=== PATIENT | female | born 1965 | race Caucasian/White ===

== ENCOUNTER 2017-04-08 06:47 | Emergency (ER) | payer SELFPAY ==
[~2017-04-08] VITALS: Ht 165.1 cm; Wt 107.8 kg
[2017-04-08 06:51] VITALS: BP 124/76; PULSE 81; RESP 16; TEMP 97.6; O2SAT 94
[2017-04-08] MEDS ORDERED: VENTAER INH (07:20)
[2017-04-08] MEDS ORDERED: TRAM50TA PO (07:20)
--- NOTE | 2017-04-08 07:24 | PD ---
HPI Chief Complaint: Cold / Flu Symptoms Time Seen by Provider: 07:09 Travel History International Travel<30 days: No Contact w/Intl Traveler<30days: No Traveled to known affect area: No History of Present Illness HPI This patient complains of runny nose and congestion and cough and swollen glands. Duration 5 days. Severity is moderate. No alleviating factors PFSH Past Medical History Medical History: Denies Significant Hx Hx Anticoagulant Therapy: No Diabetes: No Diminished Hearing: No Tetanus Vaccination: > 5 Years Influenza Vaccination: No ?: Not Tubal Ligation: Yes Past Surgical History Appendectomy: Yes Social History Alcohol Use: Yes (rare) Tobacco Use: Yes (1/2 PPD) Substance Use: No Allergies-Medications (Allergen,Severity, Reaction): Coded Allergies: Penicillin (Verified Allergy, Severe, 04/08/17) Review of Systems General / Constitutional: No: Fever HENT: No: Headaches Respiratory: Positive: Cough Physical Exam Narrative RESPIRATORY: Respiratory effort unlabored, no retractions or use of accessory muscles. Breath sounds are clear and symmetric. CARDIOVASCULAR: Regular rate and rhythm without murmur. Extremities showed no edema or varicosities. Throat clear The nares are clogged with rhinorrhea Has cervical lymphadenopathy but no meningeal signs Data Data Last Documented VS Vital Signs Date Time Temp Pulse Resp B/P Pulse Ox O2 Delivery O2 Flow Rate FiO2 04/08/17 06:51 97.6 81 16 124/76 94 MDM Medical Decision Making Medical Screen Exam Complete: Yes Emergency Medical Condition: Yes Medical Record Reviewed: Yes Differential Diagnosis Viral syndrome, URI, bronchitis Narrative Course I have reviewed the patient's electronic medical record. Presentation is most consistent with an acute viral respiratory illness Her a few tramadol for some myalgia relief and an inhaler to use as needed Advised her to stop smoking Diagnosis Primary Impression: Acute viral bronchitis Additional Instructions: The patient was advised to follow up with their physician and return if they worsen. Stop smoking The patient was warned about potential sedation for the medications they will receive on prescription. Med/Other Pt SpecificInfo: Prescription(s) given Scripts Tramadol 50 Mg Tab50 Mg PO Q6H PRN (PAIN) #12 TAB Ref 0 Prov:Sandeep Hale MD 04/08/17 Albuterol 18 GM Inh (Ventolin Hfa 18 GM Inh)90 Mcg/Act Aer2 Puff INH Q4H PRN ( SHORTNESS OF BREATH) #1 INHALER Ref 0 Prov:Sandeep Hale MD 04/08/17 Disposition: 01 DISCHARGE HOME Condition: Stable Sandeep Hale MD Apr 08, 2017 07:24
== END 2017-04-08 07:52 | disposition home or self-care (01) ==
LOC: PHED 06:47
DX: J20.8 Acute bronchitis due to other specified organisms (principal); F17.210 Nicotine dependence, cigarettes, uncomplicated
CPT/HCPCS: 99284